=== PATIENT | male | born 1975 | race Caucasian/White ===

== ENCOUNTER 2020-12-07 16:11 | Emergency (ER) | payer OTHER ==
--- NOTE | 2020-12-07 16:39 | EDM.PDOC ---
ED HPI GENERAL MEDICAL PROBLEM - General Chief Complaint: Lower Extremity Injury/Pain Stated Complaint: FELL OFF ROOF, SHOULDER AND KNEE PAIN Time Seen by Provider: 12/07/20 16:39 Source of Information: Reports: Patient History Limitations: Reports: No Limitations - History of Present Illness INITIAL COMMENTS - FREE TEXT/NARRATIVE: HISTORY AND PHYSICAL: History of present illness: Patient is a 45 year old male who presents to the emergency room after a fall. Patient states he was standing on top of a truss when the wind blew a piece of equipment, resulting in hitting him and him falling to the ground. He fell approximately 9 feet onto the ground landing on his right wrist and right leg. His initial concern was pain from the right knee down. As he has been sitting and waiting for results he states he starting to have some generalized lumbar back pain, left knee pain, and right wrist pain. He denies hitting his head or having any loss of consciousness. Patient denies any fever, chills, headache, change in vision, syncope or near syncope. Denies any chest pain, back pain, shortness of breath or cough. Denies any abdominal pain, nausea, vomiting, diarrhea, constipation or dysuria. Has not noted any blood in urine or stool. Patient has been eating and drinking appropriately. Review of systems: As per history of present illness and below otherwise all systems reviewed and negative. Past medical history: As per history of present illness and as reviewed below otherwise noncontributory. Surgical history: As per history of present illness and as reviewed below otherwise noncontributory. Social history: See social history for further information Family history: As per history of present illness and as reviewed below otherwise noncontributory. Physical exam: General: Well developed and well nourished 45 year old male. Alert and orientated x 3. Nontoxic in appearance and in no acute distress. Vital signs are stable and have been reviewed by me. Nursing notes were reviewed. HEENT: Atraumatic, nontender, no obvious injury noted, normocephalic, pupils equal and reactive bilaterally, negative for conjunctival pallor or scleral icterus, mucous membranes moist, teeth intact, TMs normal bilaterally, throat clear, neck supple, nontender, trachea midline. No drooling or trismus noted. No meningeal signs. No hot potato voice noted. Lungs: Clear to auscultation bilaterally. No wheezes, rales, or rhonchi. Chest nontender. No clavicle pain. Normal work of breathing, no accessory muscles used. Heart: S1S2, regular rate and rhythm without overt murmur, gallops, or rubs. No JVD. No peripheral edema Abdomen: Soft, nondistended, nontender. Normoactive bowel sounds. Negative for masses or costovertebral tenderness. Pelvis: Stable nontender. C-spine/Back: No pinpoint vertebral tenderness upon palpation. No crepitus, step-offs or obvious deformities. Paraspinous muscular tenderness to the lumbar region. Due to right lower extremity injury he refuses to use the leg. Denies any urinary or fecal incontinence. Denies any numbness, tingling or saddle paresthesia. No concerns of serious infection, fracture or cord compression, or cauda equina syndrome. Deep tendon reflexes brisk bilaterally. Skin: Intact, warm, dry. No lesions or rashes noted. Hematologic: No petechiae or purpra. Mucosa appropriate color and normal nail bed color and refill. Extremities: Pain with palpation of the right knee/tib/fib/ankle and calcaneous. Good flexion and extension at bilateral knee. Strong pedal, pretibial and radial pulses bilaterally. Mild pain with palpation of the ulnar aspect of right wrist. No snuff box tenderness. He moves all extremities (minus right ankle) per self without difficulty or deficits, negative for cords or calf pain. Pelvis stable. Neurovascular unremarkable. Neuro: Awake, alert, oriented. Cranial nerves II through XII unremarkable. Cerebellum unremarkable. Motor and sensory unremarkable throughout. Exam nonfocal. Psychiatric: Mood and affect are appropriate. Normal thought process. Answering questions appropriately. Notes: *This patient was seen and evaluated during the 2019 SARS-CoV-2 novel coronavirus pandemic period. Community viral transmission is ongoing at time of this encounter and the emergency department is operating under pandemic response procedures. X-ray of right ankle shows a distal tibia long segment minimally displaced fracture with up to 3 mm articular diastasis. Acute comminuted depressed calcaneal fracture. Right wrist shows a small mildly displaced acute fracture fragment in the dorsal wrist likely from the triquetrum. Right and left knee x- ray are normal, no madi abnormality. No fracture, subluxation, or other acute finding identified. Minimal lumbar spondylosis. I spoke with Dr Weaver, orthopedist on-call at our facility. He states due to the involvement of the calcaneus he would prefer the patient be seen at a trauma facility and request that I contact [facility] in [place]. I spoke with Dr. Marino, orthopedic surgeon yet [facility]. We reviewed the x-rays, he would like me to consult with podiatry to see if the tibia and calcaneus can be repaired at the same time and if the receiving specialist would be willing to do it. If not, he would be happy to see this patient and care for him. Spoke with Dr. Montero, podiatry on-call at [facility]. He states typically he likes to stage these type of injuries out and would prefer to repair the calcaneus at 2-1/2 weeks out after swelling has gone down. He states he would be happy to do the surgical repair but would prefer to wait. He states he will personally talk with Dr. Marino. I did call Dr. Marino back who states he would like the patient seen in their emergency room as he will do surgery either this evening or tomorrow. Patient does have significant pain and would benefit from a orthopedic consult at this time. I did offer the patient to go via ground EMS or private vehicle. Patient would prefer to go private vehicle to receive pain medication. Dr. Marino did request that if there is time to perform a CT noncontrast of the right lower extremity. This will be ordered but if the ambulance crew comes before then they will perform this at [facility] in [place]. I have talked with the patient about today's findings, in addition to providing specific details for plan of care. Reassessment at the time of disposition demonstrates that the patient is in no acute distress. Vital signs are stable. A posterior splint has been placed to the right lower extremity, above the knee to toes. Patient also received an ulnar gutter splint of the right wrist.Pre and post CMS and pulses are intact. Diagnostics: R knee, L knee, R wrist, lumbar spine, R calcaneus, CT right lower extremity w/o Therapeutics: Dilaudid IM, Zofran, Morphine, fiberglass splint Impression: Tibial fracture, right Calcaneal fracture, right Wrist fracture, right Fall Plan: Transfer to [facility] Definitive disposition and diagnosis as appropriate pending reevaluation and review of above. - Related Data Allergies Allergy/AdvReac Type Severity Reaction Status Date / Time No Known Allergies Allergy Verified 12/07/20 16:47 Home Meds: Home Meds Acetaminophen/oxyCODONE [Percocet 325-10 MG] 1 - 2 tab PO Q6H PRN #30 tab 12/07/20 [Rx] Review of Systems - Review of Systems Review Of Systems: Comprehensive ROS is negative, except as noted in HPI. ED EXAM, GENERAL - Physical Exam Exam: See Below (See dication) ED TRAUMA EXTREMITY PROCEDURES - Splinting Right lower extremity Splint Site: Right lower extremity (above knee to toes) Pre-Procedure NV Status: Normal Post-Procedure NV Status: Normal Splint Material: Fiberglass Splint Design: Posterior Applied & Form Fitted By: Provider, Nurse Provider Post-Splint Application NV Check: NV Status Normal, Good Position Complications: No Right wrist Splint Site: Right wrist Pre-Procedure NV Status: Normal Post-Procedure NV Status: Normal Splint Material: Fiberglass Splint Design: Gutter (Ulnar gutter) Applied & Form Fitted By: Provider Provider Post-Splint Application NV Check: NV Status Normal, Good Position Complications: Yes Course - Vital Signs Last Recorded V/S: Last Vital Signs Temp 97.2 F 12/07/20 16:43 Pulse 78 12/07/20 16:43 Resp 18 12/07/20 16:43 BP 145/86 H 12/07/20 16:43 Pulse Ox 97 12/07/20 16:43 - Orders/Labs/Meds Orders: Active Orders 24 hr Category Date Time Status NPO Now [Nothing per Oral Now Diet] [DIET] Diet 12/08/20 Breakfast Ordered Lower Leg wo Cont Rt [CT] Stat Exams 12/07/20 19:52 Ordered Lactated Ringers @ 100 MLS/HR(1,000ml) Med 12/07/20 20:00 Ordered Lactated Ringers [Ringers, Lactated] 1,000 ml IV ASDIRECTED DME for Discharge [COMM] Stat Oth 12/07/20 19:52 Ordered Medication Orders Lactated Ringer's (Ringers, Lactated) 1,000 mls @ 100 mls/hr IV ASDIRECTED RAÚL Last Admin: 12/07/20 20:18 Dose: 100 mls/hr Documented by: Meds: Medications Generic Name Dose Route Start Last Admin Trade Name Freq PRN Reason Stop Dose Admin Lactated Ringer's 1,000 mls @ 100 mls/hr 12/07/20 20:00 12/07/20 20:18 Ringers, Lactated IV 100 mls/hr ASDIRECTED RAÚL Administration Discontinued Medications Generic Name Dose Route Start Last Admin Trade Name Freq PRN Reason Stop Dose Admin Hydromorphone HCl 1 mg 12/07/20 16:57 12/07/20 17:21 Hydromorphone 1 Mg/Ml Syringe IM 12/07/20 16:58 1 mg ONETIME ONE Administration Morphine Sulfate 4 mg 12/07/20 18:13 12/07/20 18:32 Morphine 4 Mg/Ml Syringe IVPUSH 12/07/20 18:14 4 mg ONETIME ONE Administration Morphine Sulfate 2 mg 12/07/20 20:19 12/07/20 20:24 Morphine 2 Mg/Ml Syringe IVPUSH 12/07/20 20:20 2 mg ONETIME ONE Administration Ondansetron HCl 4 mg 12/07/20 16:57 12/07/20 17:21 Ondansetron 4 Mg Tab.Dis PO 12/07/20 16:58 4 mg ONETIME ONE Administration Departure - Departure Time of Disposition: 20:27 Disposition: DC/Tfer to [facility] 02 Clinical Impression: Fall Qualifiers: Encounter type: initial encounter Qualified Code(s): W19.XXXA - Unspecified fall, initial encounter Wrist fracture, right Qualifiers: Encounter type: initial encounter Fracture type: closed Qualified Code(s): S62.101A - Fracture of unspecified carpal bone, right wrist, initial encounter for closed fracture Calcaneal fracture Qualifiers: Encounter type: initial encounter Calcaneus location: body Fracture type: closed Fracture alignment: displaced Laterality: right Qualified Code(s): S92. 011A - Displaced fracture of body of right calcaneus, initial encounter for closed fracture Tibia fracture Qualifiers: Encounter type: initial encounter Tibia location: distal Fracture type: closed Fracture morphology: pilon Fracture alignment: displaced Laterality: right Qualified Code(s): S82.871A - Displaced pilon fracture of right tibia, initial encounter for closed fracture - Discharge Information Prescriptions: Acetaminophen/oxyCODONE [Percocet 325-10 MG] 1 - 2 tab PO Q6H PRN #30 tab PRN Reason: Pain Referrals: PCP,Not In Area [Primary Care Provider] - Forms: ED Department Discharge Sepsis Event Note (ED) - Focused Exam Vital Signs: Vital Signs Temp Pulse Resp BP Pulse Ox 12/07/20 16:43 97.2 F 78 18 145/86 H 97 - My Orders Last 24 Hours: My Active Orders 12/07/20 19:52 Lower Leg wo Cont Rt [CT] Stat DME for Discharge [COMM] Stat 12/07/20 20:00 Lactated Ringers @ 100 MLS/HR(1,000ml) Lactated Ringers [Ringers, Lactated] 1,000 ml IV ASDIRECTED 12/08/20 Breakfast NPO Now [Nothing per Oral Now Diet] [DIET] - Assessment/Plan Last 24 Hours: My Active Orders 12/07/20 19:52 Lower Leg wo Cont Rt [CT] Stat DME for Discharge [COMM] Stat 12/07/20 20:00 Lactated Ringers @ 100 MLS/HR(1,000ml) Lactated Ringers [Ringers, Lactated] 1,000 ml IV ASDIRECTED 12/08/20 Breakfast NPO Now [Nothing per Oral Now Diet] [DIET]
[2020-12-07] MEDS ORDERED: Ondansetron 4 MG Tab.DIS PO ONE (16:57)
[2020-12-07] MEDS ORDERED: HYDROmorphone 1 MG/ML Syringe IM ONE (16:57)
--- NOTE | 2020-12-07 17:24 | CR ---
INDICATION: Trauma. TECHNIQUE: Right ankle radiographs, 3 views. COMPARISON: None available. FINDINGS: Right distal tibial mildly comminuted fracture extending from the distal diaphysis through the tibial plafond and with up to 3 mm articular diastasis. Comminuted mildly displaced calcaneal fracture involving the subtalar articular surface. No dislocation or additional fracture identified. Non widened ankle mortise. Marked soft tissue swelling about the ankle/hindfoot. IMPRESSION: 1. Right distal tibia long segment minimally displaced fracture with up to 3 mm articular diastasis. 2. Comminuted mildly displaced intra-articular calcaneal fracture. Dictated by Chetan Eisenberg MD @ 12/07/2020 5:22:24 PM Dictated by: Chetan Eisenberg MD @ 12/07/2020 17:22:30 (Electronically Signed)
[2020-12-07] MEDS ORDERED: Morphine 4 MG/ML Syringe IVPUSH ONE (18:13)
--- NOTE | 2020-12-07 19:02 | CR ---
HISTORY: Trauma. Fall from 9 foot roof. TECHNIQUE: Right calcaneus 2 views. COMPARISON: None. FINDINGS: Acute comminuted depressed fracture of the calcaneus. Posterior subtalar joint is widened. Acute multi-directional fracture of the distal tibia involving the tibial plafond articular surface. Achilles insertion enthesophyte. IMPRESSION: Acute comminuted depressed fracture of the calcaneus. Dictated by Kiran Thorne MD @ 12/07/2020 7:00:[address] Kiran Thorne @ Dec 07 2020 7:00PM
--- NOTE | 2020-12-07 19:06 | CR ---
HISTORY: Trauma. Fall from 9th foot roof. TECHNIQUE: Right knee 2 views. COMPARISON: None. FINDINGS: No fracture. Minimal osteophyte formation in the medial compartment. Joint spaces are otherwise maintained. IMPRESSION: No acute bone abnormality. Dictated by Kiran Thorne MD @ 12/07/2020 7:05:[address] Kiran Thorne @ Dec 07 2020 7:05PM HISTORY: Trauma. Fall from 9 foot roof. TECHNIQUE: Left knee 2 views. COMPARISON: None. FINDINGS: No fracture. Joint spaces are maintained. IMPRESSION: No bone abnormality. Dictated by Kiran Thorne MD @ 12/07/2020 7:05:[address] Kiran Thorne @ Dec 07 2020 7:05PM [facility]
--- NOTE | 2020-12-07 19:06 | CR ---
HISTORY: Trauma. Fall from 9 foot roof. TECHNIQUE: Right wrist 3 views. COMPARISON: None. FINDINGS: Small mildly displaced fracture fragment at the dorsal mid wrist seen on the lateral view. No dislocation. Cyst-like changes in the capitate, hamate, and triquetrum. Negative ulnar variance. Mild degenerative changes of the distal radioulnar joint. IMPRESSION: Small mildly displaced acute fracture fragment in the dorsal wrist likely from the triquetrum. Dictated by Kiran Thorne MD @ 12/07/2020 7:03:[address] Kiran Thorne @ Dec 07 2020 7:03PM
--- NOTE | 2020-12-07 19:16 | CT ---
INDICATION: trauma/ fall off roof [address] LUMBAR SPINE WITHOUT CONTRAST TECHNIQUE: Multidetector axial CT imaging was performed through the lumbar spine, without contrast. Sagittal and coronal reconstructions were generated. FINDINGS: No acute fractures are identified. Disc spaces appear preserved. Osseous alignment is within normal limits and no subluxation is seen. Paravertebral soft tissues are unremarkable. Scattered minor degenerative changes are present in the lumbar spine. Prior cholecystectomy is noted. IMPRESSION: 1. No fracture, subluxation, or other acute finding identified. 2. Minimal lumbar spondylosis. SOFY RANDOLPH MD [employer] [facility] [employer] Please note that all CT scans at this facility use dose modulation, iterative reconstruction, and/or weight-based dosing when appropriate to reduce radiation dose to as low as reasonably achievable. Dictated by: Mando Randolph MD @ 12/07/2020 19:14:55 (Electronically Signed)
[2020-12-07] MEDS ORDERED: Lactated Ringers 1,000 ML IV SCH (20:00)
[2020-12-07] MEDS ORDERED: Morphine 2 MG/ML SYRINGE IVPUSH ONE (20:19)
== END 2020-12-07 20:51 ==
LOC: MW.ED 16:11
DX: S92.061A Displaced intraarticular fracture of right calcaneus, initial encounter for closed fracture (principal); S82.871A Displaced pilon fracture of right tibia, initial encounter for closed fracture; S62.101A Fracture of unspecified carpal bone, right wrist, initial encounter for closed fracture; W17.89XA Other fall from one level to another, initial encounter
CPT/HCPCS: 29125; 29505; 72131; 73110; 73560; 73610; 73650; 96372; 96374; 96376; 99285; A9270; J1170; J2270; J7120; 73562-26-LT; 73562-26-RT; 73562-LT; 73562-RT